=== PATIENT | female | born 1975 | race Two or more races ===

== ENCOUNTER 2022-09-14 07:11 | Day surgery (SDC) | payer OTHER ==
[~2022-09-14] VITALS: Ht 162.6 cm; Wt 86.2 kg
[~2022-09-14 07:11] MED LIST: ATENOLOL25 MG PO; CANDESARTAN CILE8 MG PO; TAMBOCOR150 MG PO; XARELTO20 MG PO
== END 2022-09-14 13:55 | disposition home or self-care (01) ==
LOC: CIR.AMB 07:11
PROVIDERS: ATTEND Specialist
DX: N92.1 Excessive and frequent menstruation with irregular cycle (principal); D25.9 Leiomyoma of uterus, unspecified; N84.0 Polyp of corpus uteri; Z20.822 Contact with and (suspected) exposure to COVID-19; I10 Essential (primary) hypertension

== ENCOUNTER 2024-12-03 09:38 | Outpatient (CLI) | payer OTHER | END 2024-12-03 09:44 | disposition home or self-care (01) | LOC: SONOGRAMA 09:38 | PROVIDERS: ATTEND Pathology Anatomic Pathology & Clinical Pathology | DX: D44.0 Neoplasm of uncertain behavior of thyroid gland (principal); E04.1 Nontoxic single thyroid nodule ==